=== PATIENT | female | born 1955 | race Caucasian/White ===

== ENCOUNTER → 2016-07-13 07:54 | Outpatient (CLI) | payer OTHER ==
[2016-07-13 08:50] LABS: APPEARANCE HAZY (CLEAR); COLOR YELLOW (YELLOW); GLUCOSE NEGATIVE (NEGATIVE); KETONE MODERATE mg/dL (NEGATIVE); LEUKOCYTE ESTERASE NEGATIVE (NEGATIVE); NITRITE NEGATIVE (NEGATIVE); PROTEIN NEGATIVE (NEGATIVE); SPECIFIC GRAVITY 1.025 (1.005-1.020); UROBILINOGEN NORMAL (NORMAL)
[2016-07-13 08:51] LABS: BILIRUBIN NEGATIVE (NEGATIVE)
[2016-07-13 09:09] LABS: ALBUMIN 3.8 g/dL (3.4-5.0); ANION GAP 19.7 mmol/L (8-16); BILIRUBIN - TOTAL 0.31 mg/dL (0.2-1.3); CALCIUM 8.7 mg/dL (8.5-10.1); CARBON DIOXIDE 21.5 mmol/L (21.0-32.0); CREATININE - SERUM 1.3 mg/dL (0.6-1.3); POTASSIUM - SERUM 4.2 mmol/L (3.5-5.1); PROTEIN - SERUM 7.6 g/dL (6.4-8.2)
== END | disposition home or self-care (01) ==
LOC: D.LAB 07:54
PROVIDERS: Physical Medicine & Rehabilitation
DX: E11.9 Type 2 diabetes mellitus without complications (principal); I10 Essential (primary) hypertension

== ENCOUNTER → 2019-09-21 13:56 | Outpatient (CLI) | payer OTHER ==
[2019-09-21 15:48] LABS: BASOPHILS 0.2 % (0-2); EOSINOPHILS 1.9 % (0-7); HEMATOCRIT 38.2 % (36.0-48.0); HEMOGLOBIN 12.8 g/dL (12-16); IMMATURE GRANULOCYTES 0.5 % (0-5); LYMPHOCYTES 20.4 % (15-50); MCHC 33.5 g/dL (31.0-37.0); MCV 86.4 fL (80.0-100.0); MEAN PLATELET VOLUME 11.9 fL (7.4-10.4); MONOCYTES 10.1 % (2-11); NEUTROPHILS 66.9 % (40-80); PLATELET COUNT 94 10x3/uL (130-400); RBC 4.42 10x6/uL (4.00-5.40); RDW 15.2 % (11.5-14.5); WBC 13.4 10x3/uL (4.8-10.8)
[2019-09-21 15:58] LABS: ANION GAP 12.7 mmol/L (8-16); CALCIUM 8.9 mg/dL (8.5-10.1); CARBON DIOXIDE 26.8 mmol/L (21.0-32.0); CREATININE - SERUM 1.8 mg/dL (0.6-1.3); POTASSIUM - SERUM 3.5 mmol/L (3.5-5.1)
[2019-09-21 16:05] LABS: VANCOMYCIN - TROUGH 14.2 ug/mL (10.0-20.0)
[2019-09-21 16:23] LABS: PLATELET ESTIMATE DECREASED
== END | disposition home or self-care (01) ==
LOC: D.LABREF 13:56
PROVIDERS: ATTEND Student in an Organized Health Care Education/Training Program
DX: M86.9 Osteomyelitis, unspecified (principal)

== ENCOUNTER → 2019-09-27 17:03 | Outpatient (CLI) | payer OTHER ==
[2019-09-27 17:18] LABS: HEMATOCRIT 33.1 % (36.0-48.0); HEMOGLOBIN 10.9 g/dL (12-16); MCH 28.1 pg (26.0-34.0); MCHC 32.9 g/dL (31.0-37.0); MCV 85.3 fL (80.0-100.0); MEAN PLATELET VOLUME 11.8 fL (7.4-10.4); PLATELET COUNT 76 10x3/uL (130-400); RBC 3.88 10x6/uL (4.00-5.40); RDW 16.3 % (11.5-14.5); WBC 13.1 10x3/uL (4.8-10.8)
[2019-09-27 17:36] LABS: ALBUMIN 3.2 g/dL (3.4-5.0); ANION GAP 12.7 mmol/L (8-16); BILIRUBIN - TOTAL 0.23 mg/dL (0.2-1.3); CARBON DIOXIDE 24.7 mmol/L (21.0-32.0); CREATININE - SERUM 1.6 mg/dL (0.6-1.3); POTASSIUM - SERUM 4.4 mmol/L (3.5-5.1); PROTEIN - SERUM 6.7 g/dL (6.4-8.2); VANCOMYCIN - TROUGH 15.4 ug/mL (10.0-20.0)
[2019-09-27 18:34] LABS: EOSINOPHILS 2 % (0-7); LYMPHOCYTES 24 % (15-50); MONOCYTES 3 % (2-11); NEUTROPHILS 71 % (40-80); PLATELET ESTIMATE DECREASED
== END | disposition home or self-care (01) ==
LOC: D.LABREF 17:03
PROVIDERS: ATTEND Student in an Organized Health Care Education/Training Program
DX: M86.172 Other acute osteomyelitis, left ankle and foot (principal)

== ENCOUNTER → 2019-10-04 15:56 | Outpatient (CLI) | payer OTHER ==
[2019-10-04 16:09] LABS: ALBUMIN 3.3 g/dL (3.4-5.0); ANION GAP 13.3 mmol/L (8-16); BILIRUBIN - TOTAL 0.3 mg/dL (0.2-1.3); CALCIUM 8.8 mg/dL (8.5-10.1); CARBON DIOXIDE 24.7 mmol/L (21.0-32.0); CREATININE - SERUM 1.4 mg/dL (0.6-1.3); PROTEIN - SERUM 6.6 g/dL (6.4-8.2); VANCOMYCIN - RANDOM 17.7 ug/mL (10.0-20.0)
[2019-10-04 16:15] LABS: BASOPHILS 0.4 % (0-2); EOSINOPHILS 1.6 % (0-7); HEMATOCRIT 34.3 % (36.0-48.0); HEMOGLOBIN 11.2 g/dL (12-16); IMMATURE GRANULOCYTES 0.4 % (0-5); LYMPHOCYTES 23.5 % (15-50); MCH 28.5 pg (26.0-34.0); MCHC 32.7 g/dL (31.0-37.0); MCV 87.3 fL (80.0-100.0); MEAN PLATELET VOLUME 11.6 fL (7.4-10.4); MONOCYTES 8.4 % (2-11); NEUTROPHILS 65.7 % (40-80); RBC 3.93 10x6/uL (4.00-5.40); RDW 17.1 % (11.5-14.5); WBC 10.8 10x3/uL (4.8-10.8)
[2019-10-04 16:27] LABS: PLATELET COUNT 143 10x3/uL (130-400)
== END | disposition home or self-care (01) ==
LOC: D.LABREF 15:56
PROVIDERS: ATTEND Student in an Organized Health Care Education/Training Program
DX: M86.172 Other acute osteomyelitis, left ankle and foot (principal)

== ENCOUNTER → 2019-10-09 12:50 | Outpatient (CLI) | payer OTHER ==
[2019-10-09 16:08] LABS: BASOPHILS 0.3 % (0-2); EOSINOPHILS 1.8 % (0-7); HEMATOCRIT 35.8 % (36.0-48.0); HEMOGLOBIN 11.7 g/dL (12-16); IMMATURE GRANULOCYTES 0.6 % (0-5); LYMPHOCYTES 22.3 % (15-50); MCH 28.8 pg (26.0-34.0); MCHC 32.7 g/dL (31.0-37.0); MCV 88.2 fL (80.0-100.0); MEAN PLATELET VOLUME 11.4 fL (7.4-10.4); MONOCYTES 7.6 % (2-11); NEUTROPHILS 67.4 % (40-80); RBC 4.06 10x6/uL (4.00-5.40); RDW 17.5 % (11.5-14.5); WBC 10.8 10x3/uL (4.8-10.8)
[2019-10-09 16:15] LABS: ANION GAP 13.2 mmol/L (8-16); CALCIUM 9.5 mg/dL (8.5-10.1); CARBON DIOXIDE 25.6 mmol/L (21.0-32.0); CREATININE - SERUM 1.5 mg/dL (0.6-1.3); POTASSIUM - SERUM 3.8 mmol/L (3.5-5.1); VANCOMYCIN - TROUGH 15.8 ug/mL (10.0-20.0)
[2019-10-09 16:40] LABS: PLATELET COUNT 35 10x3/uL (130-400)
== END | disposition home or self-care (01) ==
LOC: D.LABREF 12:50
PROVIDERS: ATTEND Student in an Organized Health Care Education/Training Program
DX: M86.9 Osteomyelitis, unspecified (principal)

== ENCOUNTER → 2019-10-10 18:36 | Outpatient (CLI) | payer OTHER ==
[2019-10-10 19:00] LABS: BASOPHILS 0.3 % (0-2); EOSINOPHILS 1.5 % (0-7); HEMATOCRIT 35.4 % (36.0-48.0); HEMOGLOBIN 11.7 g/dL (12-16); IMMATURE GRANULOCYTES 0.4 % (0-5); LYMPHOCYTES 21.8 % (15-50); MCH 28.5 pg (26.0-34.0); MCHC 33.1 g/dL (31.0-37.0); MCV 86.3 fL (80.0-100.0); MEAN PLATELET VOLUME 10.4 fL (7.4-10.4); MONOCYTES 9.8 % (2-11); NEUTROPHILS 66.2 % (40-80); RDW 16.9 % (11.5-14.5); WBC 11.2 10x3/uL (4.8-10.8)
[2019-10-10 19:10] LABS: PLATELET COUNT 81 10x3/uL (130-400)
[2019-10-10 19:42] LABS: PLATELET ESTIMATE DECREASED
== END | disposition home or self-care (01) ==
LOC: D.LABREF 18:36
PROVIDERS: ATTEND Student in an Organized Health Care Education/Training Program
DX: D69.6 Thrombocytopenia, unspecified (principal)

== ENCOUNTER → 2019-10-16 09:00 | Outpatient (CLI) | payer OTHER | END | disposition home or self-care (01) | LOC: D.LAB 09:00 | PROVIDERS: ATTEND Student in an Organized Health Care Education/Training Program | DX: M86.172 Other acute osteomyelitis, left ankle and foot (principal) ==

== ENCOUNTER → 2019-10-16 17:26 | Outpatient (CLI) | payer OTHER ==
[2019-10-16 17:38] LABS: HEMOGLOBIN 18.2 g/dL (12-16); LYMPHOCYTES 34.7 % (15-50); MCH 28.7 pg (26.0-34.0); MCHC 33.1 g/dL (31.0-37.0); MCV 86.6 fL (80.0-100.0); NEUTROPHILS 55.4 % (40-80); PLATELET COUNT 79 10x3/uL (130-400); RBC 6.35 10x6/uL (4.00-5.40); RDW 17.6 % (11.5-14.5)
[2019-10-16 17:51] LABS: ANION GAP 12.2 mmol/L (8-16); CALCIUM 8.9 mg/dL (8.5-10.1); CARBON DIOXIDE 26.5 mmol/L (21.0-32.0); CREATININE - SERUM 1.7 mg/dL (0.6-1.3); POTASSIUM - SERUM 3.7 mmol/L (3.5-5.1); VANCOMYCIN - TROUGH 16.3 ug/mL (10.0-20.0)
[2019-10-16 18:14] LABS: PLATELET ESTIMATE DECREASED
== END | disposition home or self-care (01) ==
LOC: D.LAB 17:26
PROVIDERS: ATTEND Student in an Organized Health Care Education/Training Program
DX: M86.172 Other acute osteomyelitis, left ankle and foot (principal)

== ENCOUNTER → 2019-10-23 22:25 | Outpatient (CLI) | payer OTHER ==
[2019-10-23 23:25] LABS: ANION GAP 14.6 mmol/L (8-16); CALCIUM 9.4 mg/dL (8.5-10.1); CARBON DIOXIDE 25.5 mmol/L (21.0-32.0); CREATININE - SERUM 1.7 mg/dL (0.6-1.3); POTASSIUM - SERUM 4.1 mmol/L (3.5-5.1); VANCOMYCIN - TROUGH 18.9 ug/mL (10.0-20.0)
== END | disposition home or self-care (01) ==
LOC: D.LABREF 22:25
PROVIDERS: ATTEND Student in an Organized Health Care Education/Training Program
DX: M86.172 Other acute osteomyelitis, left ankle and foot (principal)